=== PATIENT | male | born 1945 | race Caucasian/White ===

== ENCOUNTER 2021-01-13 21:36 | Observation (INO) | payer MEDICARE ==
[~2021-01-13] VITALS: Ht 175.3 cm; Wt 133.8 kg
[2021-01-13 23:04] LABS: HEMOGLOBIN 11.1 gm/dl (14.0-17.5); RED BLOOD COUNT 3.5 M/UL (4.20-5.50); WHITE BLOOD COUNT 9.5 K/UL (4.5-11.0)
[2021-01-14 04:19] LABS: BUN/CREATININE RATIO 19 (0-10)
[2021-01-14 06:35] LABS: BUN/CREATININE RATIO 20 (0-10)
[2021-01-14] MEDS ORDERED: AMLODIPINE BESY10 MG PO (11:16)
[2021-01-14] MEDS ORDERED: LISINOPRIL40 MG PO (11:16)
[2021-01-14] MEDS ORDERED: ATORVASTATIN CA10 MG PO (11:17)
[2021-01-14] MEDS ORDERED: STOOL SOFTENER100 M1 PO (11:17)
[2021-01-14] MEDS ORDERED: HYDROCHLOROTHIA25 MG PO (11:18)
[2021-01-14] MEDS ORDERED: VITAMIN D31250 MCG PO (11:19)
[2021-01-14] MEDS ORDERED: ASPIRIN EC81 MG PO (11:20)
[2021-01-14 11:22] LABS: BUN/CREATININE RATIO 23 (0-10)
[2021-01-14 15:25] LABS: BUN/CREATININE RATIO 22 (0-10)
[2021-01-14 19:25] LABS: BUN/CREATININE RATIO 22 (0-10)
[2021-01-14 23:39] LABS: BUN/CREATININE RATIO 20 (0-10)
[2021-01-15 02:51] LABS: HEMOGLOBIN 9.9 gm/dl (14.0-17.5)
[2021-01-15 02:57] LABS: RED BLOOD COUNT 3.05 M/UL (4.20-5.50); WHITE BLOOD COUNT 5.9 K/UL (4.5-11.0)
[2021-01-15 03:11] LABS: BUN/CREATININE RATIO 19 (0-10)
[2021-01-15 13:09] LABS: BUN/CREATININE RATIO 20 (0-10)
[2021-01-15] MEDS ORDERED: VITAMIN B-1100 MG/ML IV (13:54)
[2021-01-15] MEDS ORDERED: TIZANIDINE HCL4 MG PO (13:54)
[2021-01-15] MEDS ORDERED: HYDROCODON-ACE1 EAC4 PO (13:54)
[2021-01-15] MEDS ORDERED: CYCLOBENZAPRINE10 MG PO (13:54)
== END 2021-01-15 17:12 | disposition other institution (70) ==
LOC: ER1 21:36 → PROG CARE 01-14 04:46 → CDU 01-14 04:46 → PROG CARE 01-14 04:46
PROVIDERS: Emergency Medicine; Internal Medicine; Physician Assistant Medical; ADMIT Internal Medicine
DX: E87.1 Hypo-osmolality and hyponatremia (principal); I10 Essential (primary) hypertension; E78.5 Hyperlipidemia, unspecified; E03.9 Hypothyroidism, unspecified; E66.01 Morbid (severe) obesity due to excess calories; R53.1 Weakness; F10.10 Alcohol abuse, uncomplicated; Z79.82 Long term (current) use of aspirin; Z79.899 Other long term (current) drug therapy; Z20.822 Contact with and (suspected) exposure to COVID-19; Z91.81 History of falling
CPT/HCPCS: 12011; 36415; 51702; 70450; 70486; 70496; 70498; 71045; 72125; 80048; 80053; 80307; 81001; 82550; 83605; 83690; 83735; 83874; 84100; 85025; 85027; 85610; 85652; 85730; 86140; 90471; 90715; 93005; 96374; 96375; 97163; 99285; G0378; G0480; J1650; J2930; J3360; J3411; J7030; J7131; Q9967; U0002